=== PATIENT | male | born 1960 | race Caucasian/White ===

== ENCOUNTER 2016-07-22 20:43 | Observation (INO) ==
[2016-07-22] MEDS ORDERED: Aspirin 81 MG TAB.CHEW PO ONE (20:59)
--- NOTE | 2016-07-22 21:02 | Emergency Department Note ---
Disposition Clinical Impression: Chest pain Qualifiers: Chest pain type: unspecified Qualified Code(s): R07.9 - Chest pain, unspecified Disposition: Admitted As Inpatient Condition: Fair Referrals: Skylar Fox [Primary Care Provider] - Forms: ED Satisfaction Letter Time of Disposition: 23:02 Chest Pain HPI - General Chief Complaint: ED Chest Pain Stated Complaint: Chest Pain Time Seen by Provider: 07/22/16 20:52 Source: patient Limitations: no limitations Vital Signs Reviewed: Yes Nursing Notes Reviewed: Yes - History of Present Illness HPI Narrative: Patient to the emergency department she vomited chest pain. Patient states he is been having some chest pains for several days. Around 5 PM tonight he got really bad. Substernal. Pain into his jaws and the shoulder blades. He states he has also had some tingling in his hands. History of HI in 2006 with stent placement. Unsure when his last stress test or heart 4. 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 Patient is very dull right now. Severity scale (1-10): 4 - Related Data Home Medications Medication Instructions Recorded Confirmed Allopurinol [Zyloprim] 100 mg PO DAILY 01/02/15 01/02/15 Amlodipine [Norvasc] 2.5 mg PO DAILY 01/02/15 01/02/15 Aspirin Enteric Coated [Aspirin EC] 81 mg PO DAILY 01/02/15 01/02/15 Cyclobenzaprine HCl 10 mg PO TID 01/02/15 01/02/15 Diazepam [Valium] 10 mg PO DAILY 01/02/15 01/02/15 Doxazosin Mesylate [Cardura Xl] 4 mg PO DAILY 01/02/15 01/02/15 Escitalopram [Lexapro] 10 mg PO DAILY 01/02/15 01/02/15 Ferrous Sulfate 325 mg PO DAILY 01/02/15 01/02/15 Furosemide [Lasix] 20 mg PO DAILY 01/02/15 01/02/15 Metformin [Glucophage] 500 mg PO BIDWM 01/02/15 01/02/15 Metoprolol [Lopressor] 25 mg PO DAILY 01/02/15 01/02/15 TraMADol [Ultram] 50 mg PO BID PRN 01/02/15 01/02/15 TraZODone 150 mg PO BID 01/02/15 01/02/15 Previous Rx's Medication Instructions Recorded Amoxicillin/Clavulanate [Augmentin] 875 mg PO BIDWM #20 tablet 01/02/15 Allergies Allergy/AdvReac Type Severity Reaction Status Date / Time codeine Allergy Hives Verified 07/22/16 20:44 All systems ED: reviewed and negative except as stated. Constitutional: Denies: fever Cardiovascular: Reports: chest pain, palpitations, dyspnea on exertion Respiratory: Denies: dyspnea Gastrointestinal: Denies: vomiting, diarrhea Chest Pain PMH - Past Medical History Medical history: Reports: coronary artery disease, diabetes, hypertension, myocardial infarction Surgical history: Reports: angioplasty/stent Psychiatric history: Reports: no psych history - Social History Smoking Status: Current every day smoker Alcohol use: Reports: none Drug use: Reports: none Physical Exam Patient awake alert no acute distress. No diaphoresis. Heart regular, lungs clear. - General Limitations: no limitations General appearance: alert - Head Head exam: atraumatic, normocephalic - Eye Eye exam: Present: normal appearance, PERRL - ENT ENT exam: normal exam, normal oropharynx - Neck Neck exam: Present: normal inspection - Chest Chest inspection: Present: normal inspection - Respiratory Respiratory exam: Present: normal lung sounds bilaterally. Absent: respiratory distress - Cardiovascular Cardiovascular exam: Present: regular rate, normal rhythm, normal heart sounds - Abdominal Exam Abdominal exam: Present: soft, Non-Tender - Neurological Exam Neurological exam: Present: alert, oriented X3 - Psychiatric Psychiatric exam: Present: normal affect, normal mood - Skin Skin exam: Present: warm, dry, intact Course Course Narrative: Patient is in no acute distress. Cardiac workup and likely observation. - Reevaluation(s) Reevaluation #1: Patient reevaluated and still having pain. We will give him some morphine. Patient states he feels like the pain in his neck is muscle spasms. We will try some Valium. Posterior EKG does not show any elevations. Will admit. Time: 21:53 - Consultations Consultation #1: Dr Hunter consulted. Agreed serial trops. 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 Will see tomorrow. Time: 22:59 Consultation #2: Dr Alvarez accepts Time: 23:01 Vital Signs Temperature 98.5 F 07/22/16 20:45 Pulse Rate 74 07/22/16 20:45 Respiratory Rate 20 07/22/16 20:45 Blood Pressure 138/82 07/22/16 20:45 O2 Sat by Pulse Oximetry 98 07/22/16 20:45 Temperature 98.5 F 07/22/16 20:45 Pulse Rate 71 07/22/16 21:46 Respiratory Rate 18 07/22/16 21:46 Blood Pressure 138/93 07/22/16 21:46 O2 Sat by Pulse Oximetry 97 07/22/16 21:46 Oxygen Delivery Oxygen Delivery Room Air Chest Pain - Medical Records Medical records reviewed: Yes I reviewed the patient's medical records. - Lab Data Lab results reviewed: Yes I reviewed the patient's lab results. Result diagrams: 07/22/16 20:59 07/22/16 20:59 Lab Results 07/22/16 07/22/16 07/22/16 Range/Units 20:59 20:59 20:59 WBC 10.9 (4.3-11.1) K/mcL RBC 4.88 (4.19-5.50) M/mcL Hgb 15.4 (12.9-16.9) g/dL Hct 44.3 (37.5-50.1) % MCV 90.8 (83.0-100.0) fL MCH 31.6 (28.0-33.3) pg MCHC 34.8 (31.6-35.5) g/dL RDW 11.9 (11.5-14.5) % Plt Count 240 (140-400) K/mcL MPV 11.2 (9.4-12.4) fL Immature Gran % 0.3 (0-4) % Seg Neutrophils % 53.6 % Lymphocytes % 35.4 % Monocytes % 7.0 % Eosinophils % 2.9 % Basophils % 0.8 % Neutrophils # 5.8 (1.6-8.9) K/mcL Lymphocytes # 3.9 (0.6-4.6) K/mcL Monocytes # 0.8 (0.0-1.3) K/mcL Eosinophils # 0.3 (0.0-0.6) K/mcL Basophils # 0.1 (0.0-0.2) K/mcL PT 10.3 (9.4-12.1) Seconds INR 1.0 APTT 32.3 (26.0-36.0) Seconds Sodium (136-145) mEq/L Potassium (3.5-4.5) mEq/L Chloride (98-109) mEq/L Carbon Dioxide (19-29) mEq/L BUN (8-26) mg/dL Creatinine (0.72-1.25) mg/dL Est GFR ( Amer) (> 60) Est GFR (Non-Af Amer) (> 60) BUN/Creatinine Ratio (6-26) Glucose (70-99) mg/dL Calculated Osmolality (280-300) Calcium (8.6-10.8) mg/dL Troponin I (0-0.03) ng/mL B-Natriuretic Peptide 58 (0-100) pg/mL 07/22/16 07/22/16 Range/Units 20:59 20:59 WBC (4.3-11.1) K/mcL RBC (4.19-5.50) M/mcL Hgb (12.9-16.9) g/dL Hct (37.5-50.1) % MCV (83.0-100.0) fL MCH (28.0-33.3) pg MCHC (31.6-35.5) g/dL RDW (11.5-14.5) % Plt Count (140-400) K/mcL MPV (9.4-12.4) fL Immature Gran % (0-4) % Seg Neutrophils % % Lymphocytes % % Monocytes % % Eosinophils % % Basophils % % Neutrophils # (1.6-8.9) K/mcL Lymphocytes # (0.6-4.6) K/mcL Monocytes # (0.0-1.3) K/mcL Eosinophils # (0.0-0.6) K/mcL Basophils # (0.0-0.2) K/mcL PT (9.4-12.1) Seconds INR APTT (26.0-36.0) Seconds Sodium 140 (136-145) mEq/L Potassium 3.5 (3.5-4.5) mEq/L Chloride 105 (98-109) mEq/L Carbon Dioxide 23 (19-29) mEq/L BUN 13 (8-26) mg/dL Creatinine 1.12 (0.72-1.25) mg/dL Est GFR ( Amer) > 60 (> 60) Est GFR (Non-Af Amer) > 60 (> 60) BUN/Creatinine Ratio 12 (6-26) Glucose 107 H (70-99) mg/dL Calculated Osmolality 291 (280-300) Calcium 10.0 (8.6-10.8) mg/dL Troponin I 0.01 (0-0.03) ng/mL B-Natriuretic Peptide (0-100) pg/mL - EKG Data EKG attestation: Yes I reviewed and interpreted this EKG. EKG results narrative: Sinuses 74. Right bundle branch block with anteroseptal ST depressions. Right axis. Right bundle branch block new from last EKG in 2014. Heart Score - Score History: Moderately Suspicious EKG: Non Specific repolarisation Disturbance Age: 45-65 Risk Factors: Equal/Greater than 3 risk factor or history of atherosclerotic disease Troponin: Less than normal limit HEART Score Total: 5 Critical Care Time Critical Care Time: No
[2016-07-22 21:06] LABS: Basophils # 0.1 K/mcL (0.0-0.2); Basophils % 0.8 %; Eosinophils # 0.3 K/mcL (0.0-0.6); Eosinophils % 2.9 %; Hematocrit 44.3 % (37.5-50.1); Hemoglobin 15.4 g/dL (12.9-16.9); Immature Granulocytes % 0.3 % (0-4); Lymphocytes # 3.9 K/mcL (0.6-4.6); Lymphocytes % 35.4 %; Mean Corpuscular HGB Conc 34.8 g/dL (31.6-35.5); Mean Corpuscular Hemoglobin 31.6 pg (28.0-33.3); Mean Corpuscular Volume 90.8 fL (83.0-100.0); Mean Platelet Volume 11.2 fL (9.4-12.4); Monocytes # 0.8 K/mcL (0.0-1.3); Neutrophils # 5.8 K/mcL (1.6-8.9); Platelet Count 240 K/mcL (140-400); Red Blood Count 4.88 M/mcL (4.19-5.50); Red Cell Distribution Width 11.9 % (11.5-14.5); Segmented Neutrophils % 53.6 %
[2016-07-22 21:12] LABS: Prothrombin Time 10.3 Seconds (9.4-12.1)
[2016-07-22 21:15] LABS: Activated Partial Thrombo Time 32.3 Seconds (26.0-36.0)
[2016-07-22 21:18] LABS: BUN/Creatinine Ratio 12 (6-26); Blood Urea Nitrogen 13 mg/dL (8-26); Carbon Dioxide 23 mEq/L (19-29); Chloride 105 mEq/L (98-109); Glucose 107 mg/dL (70-99); Osmolality,Calculated 291 (280-300); Potassium 3.5 mEq/L (3.5-4.5); Sodium 140 mEq/L (136-145); eGFR For African Americans > 60 (> 60); eGFR For Non-African Americans > 60 (> 60)
[2016-07-22] MEDS: Nitroglycerin 0.4 MG TAB.SUBL SL ONE ×2 (21:43→21:49)
[2016-07-22] MEDS ORDERED: diazePAM 10 MG/2 ML SYRINGE IVP STA (21:50)
[2016-07-22] MEDS ORDERED: *HR* Morphine 2 MG/ML SYRINGE IVP ONE (21:50)
[2016-07-22] MEDS ORDERED: Ondansetron 4 MG/2 ML VIAL IVP ONE (21:51)
[2016-07-23] MEDS ORDERED: Naloxone 0.4 MG/ML INJ IVP PRN (01:35)
[2016-07-23] MEDS ORDERED: Nitroglycerin 0.4 MG TAB.SUBL SL PRN (01:36)
[2016-07-23] MEDS ORDERED: *HR* Morphine 2 MG/ML SYRINGE IVP ONE (01:36)
--- NOTE | 2016-07-23 01:37 | Internal Med History&Physical ---
Date of Encounter: 07/23/16 Time of Encounter: 01:37 Assessment and Plan (1) Chest pain Current visit: Yes Status: Acute Pt has chest pain, suspicious for ACS. start enoxaparin and aspirin. cardiac monitoring. Trend troponins. Check lipid panel. Cardiac consultation, was requested in the ER. If troponins negative, consider pharmacological stress test (Pt reports that he has knee problems and cannot walk on a treadmill, if he were to do a stress test.) Qualifiers: Chest pain type: unspecified Qualified Code(s): R07.9 - Chest pain, unspecified (2) CAD (coronary artery disease) Current visit: Yes Status: Acute s/p ME and stent placement in 2006. Qualifiers: Coronary Disease-Associated Artery/Lesion type: [place] artery [place] vs. transplanted heart: [place] heart Associated angina: angina presence unspecified Qualified Code(s): I25.10 - Atherosclerotic heart disease of [place] coronary artery without angina pectoris (3) Diabetes mellitus Current visit: Yes Status: Acute Her metformin. Start sliding scale insulin. Qualifiers: Diabetes mellitus type: type 2 Diabetes mellitus complication status: with unspecified complications Diabetes mellitus half-way insulin use: without rodent exterminator use Qualified Code(s): E11.8 - Type 2 diabetes mellitus with unspecified complications (4) Hypertension Current visit: Yes Status: Chronic Monitor blood pressure. Continue metoprolol. Qualifiers: Hypertension type: essential hypertension Qualified Code(s): I10 - Essential (primary) hypertension (5) Nicotine dependence Current visit: Yes Status: Chronic Pt reports that he is trying to quit. counselled for smoking cessation. He does not want nicotine patch Qualifiers: Nicotine product type: cigarettes Substance use status: unspecified nicotine-induced disorder Qualified Code(s): F17.219 - Nicotine dependence, cigarettes, with unspecified nicotine-induced disorders Internal Medicine - H&P: HPI Chief complaint: Chest pain Admitted From: Emergency Dept Plans for Post Hospital Care: Home History of present illness: Mr. Coburn is a 56 year old male With h/o ME in 2006 (he had chest pain / pressure and felt like his chest was caving in; associated with numbness of fingers and cramping of neck) had stent placed, diabetes, hypertension. At around 5 PM yesterday, he had sharp chest pain in the mid-sternal area, started while he was at rest. 5/10 in severity. Pain was intermittent, lasting about 3- 5 minutes. He reports pain in the jaws, neck cramping and pain between the shoulder blades. Also reports some tingling in hands. Reports palpitations and sweating. He was given nitroglycerin and morphine in the emergency department. He reports that the pain is dull and 2/10 now. He denies nausea, vomiting, shortness of breath, abdominal pain, dysuria, hematuria, bowel problems. He had some headache in the emergency department but denies any headache now. Pt reports that he has knee problems and cannot walk on a treadmill, if he were to do a stress test. Past Med Surg Social Fam HX - Past Medical History Medical history: coronary artery disease, diabetes, hypertension, myocardial infarction Psychiatric history: no psych history - Past Surgical History Surgical History: angioplasty/stent - Social History Smoking Status: Current every day smoker Packs per day: 1/3 Smokeless Tobacco Status: No Alcohol use: none Drug use: none - Family History Mother Living Status: Cause of : Brain Tumor Hx Family Cancer: Yes Hx Family Endocrine Disorder: Yes (DM) Father Living Status: Cause of : P.E. Hx Family Genitourinary Disorders: Yes (BPH) Hx Family Medical Disorders: Yes (P.E.) Internal Medicine - H&P: Meds Doxazosin Mesylate [Cardura Xl] 4 mg PO DAILY 01/02/15 [History] Furosemide [Lasix] 20 mg PO DAILY 01/02/15 [History] Metformin [Glucophage] 500 mg PO BIDWM 01/02/15 [History] Metoprolol [Lopressor] 25 mg PO DAILY 01/02/15 [History] TraZODone 150 mg PO HS 01/02/15 [History] Cyclobenzaprine [Flexeril] 07/23/16 [History] Allergies codeine Allergy (Verified 07/22/16 20:44) Hives All Systems PM: A 10-system review of systems was performed and is negative for pertinent findings except as documented above in the HPI. - Constitutional Vitals: Temp Pulse Resp BP Pulse Ox 97.7 F 61 18 150/98 55 07/23/16 00:16 07/23/16 00:16 07/23/16 00:16 07/23/16 00:16 07/23/16 00:56 Exam: General: Not in acute distress at the time of my evaluation HEENT: Oral mucosa is moist. No conjunctival palor or scleral icterus Neck: No obvious neck swellings Lungs: Clear to auscultation Cardiac: Regular rate and rhythm. No significant murmurs Abdomen: Soft, non tender. Bowel sounds present Genitourinary: No arias catheter Neurological: Alert and oriented. No gross localizing deficits Psych: Not aggressive or agitated Extremities: no significant leg edema Skin: No generalized rash Internal Med - H&P Results - Labs CBC & Chem 7: 07/22/16 20:59 07/22/16 20:59 - EKG Data -: EKG Interpreted by Myself EKG shows normal: sinus rhythm - EKG Data EKG comments: RBBB 07/23/16 01:50 - Impressions ITS Impressions Chest X-Ray 07/22/16 20:59 IMPRESSION: No evidence for acute cardiopulmonary process. D/ / Krystian Ramirez MD / Krystian Ramirez MD Interpreting Provider: Krystian Ramirez MD
[2016-07-23] MEDS ORDERED: Dextrose Gel 15 GM PO PRN ×2 (01:39)
[2016-07-23] MEDS ORDERED: *HR* Dextrose 50 % in Water (Syg) 50 ML SYRINGE IVP PRN (01:39)
[2016-07-23] MEDS ORDERED: D5% in Water 1,000 ML IVC PRN (01:39)
[2016-07-23] MEDS ORDERED: traZODone 50 MG TABLET PO SCH (01:45)
[2016-07-23] MEDS ORDERED: *HR* Enoxaparin 100 MG/ML SYRINGE SQ STA (01:59)
[2016-07-23 04:00] LABS: Chol/HDL Ratio 3.6 (0-4.9); Magnesium 2.4 mg/dL (1.6-2.6)
[2016-07-23] MEDS ORDERED: Regadenoson 0.4 MG/5 ML SYRINGE IVP ONE (07:38)
[2016-07-23] MEDS ORDERED: Aspirin 325 MG TABLET PO SCH (09:00)
[2016-07-23] MEDS: Insulin LISPRO 300 UNITS/3 ML VIAL SQ SCH ×2 (10:16→11:42)
[2016-07-23 10:17] VITALS: BP 116/72
--- NOTE | 2016-07-23 10:39 | Nuclear Medicine Stress Report ---
Regadenoson Nuclear Stress Name: Inocente Coburn Date of Study: 07/23/2016 Date: 1960 Ht: 70.0 in Medical Record#: [id number] Age: 56 Wt: 196.0 lb Gender: Male Order #: [id number] Location: [facility] Room: [facility] [place] Supervising Provider: Salvador Sierra CNP Reading Physician: Dameon Martin DO, FACHenry, MIGUEL OVIEDO Ordering Physician: Noel Shannon MD Primary Care Physician: Skylar Fox CNP Stress Technologist: Chayito Zabala, DATA CODER OPERATOR, CPFT Prep Person: Milna Mina Indications: Chest Pain, Coronary Artery Disease Impression: Pharmacologic stress ECG is non diagnostic for ischemia due to baseline non-specific ST and T changes. Gated EF = 70%. Small sized, moderate intensity, primarily fixed apical inferior perfusion defect. Wall motion appears normal. These findings are suggestive of artifact. Perfusion imaging was negative for ischemia or infarct. History: Hypertension Diabetes Hypercholesteremia History of Smoking Prior PCI Stress Test Summary: Stress Test Type: Pharmacologic Regadenoson 0.4mg/5ml given IV Baseline Information: Initial Heart Rate: 51 Blood Pressure: 118/70 Stress Information: Test Terminated Due to (primary): As per protocol Maximum Blood Pressure: 104/50 Maximum Heart Rate: 78 Percent Maximum Heart Rate Achieved: 48 Double Product: 8112 Symptoms: Shortness of breath Nuclear Summary: SPECT myocardial perfusion imaging using Tc99m Sestamibi given intravenously was performed at rest and following cardiac stress testing. The resting images were obtained following initial dose of 11 mCi. Following stress an additional dose of 34.3 mCi was given at peak exercise or 30 seconds post regadenoson infusion. Medication Given: Time Medication Dose Units Route Findings: Stress Note * Resting ECG demonstrated normal sinus rhythm, RBBB, and nonspecific ST-T changes. * No baseline arrhythmias were noted. * Pharmacologic stress ECG is non diagnostic for ischemia due to baseline non-specific ST and T changes. * Rare PVCs noted prior to exam beginning. * Rare PVCs noted during stress. Hemodynamic responses * Normal hemodynamic responses to pharmacologic stress. Study Quality * Study quality is average. Gated EF % * Gated EF = 70%. Left Ventricle * The left ventricle is not dilated. * LVEDV = 99 mL. NORMALS * Normal wall motion. Inferior Perfusion Rest * The apical inferior segment shows a moderate reduction in perfusion. Inferior Perfusion Stress * The apical inferior segment shows a moderate reduction in perfusion. TID * No evidence of transient ischemic dilatation. Lung Uptake * There is no evidence of increase lung uptake. Updated by Dameon Martin DO, LEONARDO, IVELISSE, MIGUEL on 07/23/2016 10:29:24 AM electronically signed on 07/23/2016 10:33:58 AM with status of Final
--- NOTE | 2016-07-23 12:44 | Discharge Summary ---
Date of Encounter: 07/23/16 Time of Encounter: 11:30 - Discharge Diagnosis (1) Chest pain Priority: Primary Status: Resolved Qualifiers: Chest pain type: unspecified Qualified Code(s): R07.9 - Chest pain, unspecified (2) CAD (coronary artery disease) Priority: Secondary Status: Chronic Qualifiers: Coronary Disease-Associated Artery/Lesion type: [place] artery [place] vs. transplanted heart: [place] heart Associated angina: angina presence unspecified Qualified Code(s): I25.10 - Atherosclerotic heart disease of [place] coronary artery without angina pectoris (3) Diabetes mellitus Priority: Secondary Status: Chronic Comments: No recent A1c but appears well-controlled at home. Follow-up outpatient Qualifiers: Diabetes mellitus type: type 2 Diabetes mellitus complication status: with unspecified complications Diabetes mellitus care home insulin use: without care home use Qualified Code(s): E11.8 - Type 2 diabetes mellitus with unspecified complications (4) Hypertension Priority: Secondary Status: Chronic Comments: Controlled with his regular home medications of metoprolol and furosemide. Follow up outpatient Qualifiers: Hypertension type: essential hypertension Qualified Code(s): I10 - Essential (primary) hypertension (5) Nicotine dependence Priority: Secondary Status: Chronic Comments: Declined counseling Qualifiers: Nicotine product type: cigarettes Substance use status: unspecified nicotine-induced disorder Qualified Code(s): F17.219 - Nicotine dependence, cigarettes, with unspecified nicotine-induced disorders - Discharge Medications Home Medications: Doxazosin Mesylate [Cardura Xl] 4 mg PO DAILY 01/02/15 [History] Furosemide [Lasix] 20 mg PO DAILY 01/02/15 [History] Metformin [Glucophage] 500 mg PO BIDWM 01/02/15 [History] Metoprolol [Lopressor] 25 mg PO DAILY 01/02/15 [History] TraZODone 150 mg PO HS 01/02/15 [History] Cyclobenzaprine [Flexeril] 07/23/16 [History] Allergies/Adverse Reactions: Allergies codeine Allergy (Verified 07/22/16 20:44) Hives Procedures/tests Complete & Pending: Procedures Performed prior 72 hours Category Date Time Status NM michael perf SPECT multi [NM] Routine Exams 07/23/16 07:21 Taken SP pharm nuclear stress Routine Y 07/23/16 07:20 Completed Date of admission: 07/22/16 23:28 Primary care physician: Skylar Fox Consults: 07/23/16 01:10 Consult to Test Pilot [CONS] Routine Reason for SW Consult: patient interested in HCAP Discharging clinician: Lia Richards Anticipated date of discharge: 07/23/16 - Patient Status Disposition: Home, Self-Care Condition: Fair Functional capacity at discharge: independent ambulation Overall status at discharge: patient is back to baseline - Discharge Instructions Instructions: Chest Pain (DC) Follow Up With: Skylar Fox [Primary Care Provider] - (Please call the office tomorrow to make a hospital follow up appt.) Additional Instructions: Follow-up with primary care provider within one to 2 weeks - Diet and Activity Activity: increase activity as tolerated Diet: diabetic diet, low fat, low cholesterol, low salt diet Hospital course: Mr. Coburn is a 56 year old male with past medical history of CAD status post stent, diabetes, hypertension, tobacco abuse. Patient presented to the emergency department chief complaint of sharp chest pain located midsternally and started when he was at rest. He stated the pain was intermittent, and lasted about 3-5 minutes. He reports pain in his jaw, neck cramping, and pain between his shoulder blades. He also reported tingling in his hands. Patient also reported palpitations and sweating. He was given nitroglycerin and morphine in the emergency department which dulled his pain. He denied nausea, vomiting, shortness of breath, abdominal pain. Workup in the emergency department unremarkable. Chest x-ray negative. Patient was admitted to the hospitalist service for further evaluation and management. Troponins negative 2. Nuclear stress test negative for ischemia or infarct and revealed an ejection fraction of 70%. Acute coronary syndrome ruled out. Patient denied chest pain or shortness of breath throughout this admission. His diabetes and blood pressure well controlled. He currently smokes a third of a pack of cigarettes per day and is trying to quit on his own, declined nicotine replacement therapies. Lipid panel borderline abnormal with elevated triglycerides of 219, recommend lifestyle changes and follow-up outpatient. He was discharged home in stable condition with close outpatient follow-up recommended. ITS Impressions Chest X-Ray 07/22/16 20:59 IMPRESSION: No evidence for acute cardiopulmonary process. D/ / Krystian Ramirez MD / Krystian Ramirez MD Interpreting Provider: Krystian Ramirez MD Regadenosen nuclear stress impression: Pharmacologic stress ECG is nondiagnostic for ischemia due to baseline nonspecific ST and T changes. Gated EF equals 70%. Small sized, moderate intensity, primarily fixed apical inferior perfusion defect. Wall motion appears normal. These findings are suggestive of artifact. Perfusion imaging was negative for ischemia or infarct. - Time Spent with Patient Total time spent providing and/or coordinating discharge services: - Constitutional Vitals: Temp Pulse Resp BP Pulse Ox 97.4 F L 61 16 116/72 99 07/23/16 10:12 07/23/16 10:12 07/23/16 10:12 07/23/16 10:12 07/23/16 10:12 General appearance: Present: A&O X 3, pleasant, no acute distress, answers questions appropriately - Head Head exam: Present: atraumatic, normocephalic - Eye Eye exam: Present: PERRL, conjuntiva pink, sclera anicteric Pupils: Present: PERRL - Neck Neck exam general surgery: Present: supple, trachea midline. Absent: lymphadenopathy - Respiratory Respiratory exam: Present: decreased breath sounds. Absent: accessory muscle use, rales, respiratory distress, rhonchi, wheezes - Cardiovascular Cardiovascular exam: Present: RRR, +S1, +S2. Absent: diastolic murmur, gallop, rubs, systolic murmur - GI/Abdominal GI/Abdominal exam: Present: normal bowel sounds, soft, no peritoneal signs. Absent: distended, tenderness - Extremities Exam Extremities exam: Present: warm, radial pulses palpable and symetrical. Absent : calf tenderness, cyanotic, pedal edema - Neurological Exam Neurological exam: Present: alert, CN II-XII intact, normal gait, oriented X3, no focal deficits, strengths equal and symetr throughout. Absent: pronater drift, facial droop, speech deficit - Skin Skin exam: Present: dry, intact, normal color, warm
[2016-07-23] MEDS ORDERED: Insulin LISPRO 300 UNITS/3 ML VIAL SQ SCH (21:00)
--- NOTE | 2016-07-24 16:37 | Electrocardiograph Report ---
[place] [address] Test Date: 2016-07-22 Pat Name: Inocente Coburn Department: 105 Room: 3B48 Gender: M Director Of Programming: : 1960 Requested By: Keerthi See Order Number: [id number] Reading MD: Amanda Chaves Measurements Intervals [place] Rate: 79 P: 62 [place]: 156 QRS: -37 QRSD: 136 T: 6 QT: 419 QTc: 454 Interpretive Statements SINUS RHYTHM RIGHT BUNDLE BRANCH BLOCK NONSPECIFIC ST FINDINGS LEFTWARD AXIS Electronically Signed On 07-24-2016 16:35:22 EDT by Amanda Chaves
--- NOTE | 2016-07-24 16:53 | Electrocardiograph Report ---
[address] [address] Test Date: 2016-07-22 Pat Name: Inocente Coburn Department: 103 Room: 3B Gender: M Barber: : 1960 Requested By: Keerthi See Order Number: [id number] Reading MD: Amanda Chaves Measurements Intervals [place] Rate: 74 P: 70 [place]: 178 QRS: 73 QRSD: 142 T: 23 QT: 401 QTc: 428 Interpretive Statements SINUS RHYTHM RIGHT BUNDLE BRANCH BLOCK Electronically Signed On 07-24-2016 16:52:19 EDT by Amanda Chaves
== END 2016-07-23 13:07 | disposition home or self-care (01) ==
LOC: 3BNU 20:43 → EMEROO 20:43 → 3BNU 07-23 00:13
PROVIDERS: ADMIT Internal Medicine; ATTEND Nurse Practitioner Family